=== PATIENT | male | born 1980 | race Caucasian/White ===

== ENCOUNTER → 2022-11-11 12:58 | Outpatient (BNVA) | payer MEDICARE, SELFPAY | PROVIDERS: Visit Provider Family Medicine | DX: Z00.00 Encounter for general adult medical examination without abnormal findings (principal); M96.1 Postlaminectomy syndrome, not elsewhere classified; Z96.89 Presence of other specified functional implants; Z85.830 Personal history of malignant neoplasm of bone; G47.33 Obstructive sleep apnea (adult) (pediatric) | CPT/HCPCS: 80053; 80061; 83036; 83721; 85025 ==

== ENCOUNTER → 2023-04-30 08:21 | Outpatient (BNVA) | payer MEDICARE, SELFPAY | PROVIDERS: PCP Family Medicine; Visit Provider Family Medicine | DX: D75.1 Secondary polycythemia (principal); E78.5 Hyperlipidemia, unspecified; Z85.830 Personal history of malignant neoplasm of bone; M96.1 Postlaminectomy syndrome, not elsewhere classified; F17.200 Nicotine dependence, unspecified, uncomplicated | CPT/HCPCS: 80061; 85025 ==

== ENCOUNTER 2023-05-14 15:17 | Outpatient (CLI) | payer MEDICARE, MEDICAID, SELFPAY ==
--- NOTE | 2023-05-14 15:30 | CT_ITS ---
WS: [id number] CT chest w con* [id number] HISTORY: History of synovial sarcoma of the RIGHT thigh. TECHNIQUE: Axial imaging performed through the thorax. Coronal and sagittal reformats are submitted. All CT scans at [facility] use at least one of these dose optimization techniques: automated exposure control; mA and/or kV adjustment per patient size (includes targeted exams where dose is mat ched to clinical indication); or iterative reconstruction. CONTRAST: Omnipaque 350; 100 mL IV. DLP: 498.38 mGy.cm COMPARISON: None available. Lungs and central airway: Mildly hyperexpanded lungs. Mild changes of centrilobular emphysema. No mas s or pulmonary nodule. No groundglass attenuation. Pleura: Normal. No pleural effusion. Heart and pericardium: Normal size heart with no pericardial effusion. Mediastinum and yasmany: Small subcentimeter mediastinal and hilar lymph nodes. Largest lymph node is 8 mm in the RIGHT suprahilar location. Vessels: Normal size aortic and pulmonary artery. No coronary artery calcifications. Chest wall and lower neck: No soft tissue masses. Upper abdomen: Normal. Osseous structures: No destructive bone lesions. Dorsal column stimulator electrodes are noted over t he mid thoracic region. IMPRESSION: 1. No pulmonary mass or nodule. 2. No mediastinal or hilar lymphadenopathy. 3. Mild chronic emphysema.
[2023-05-14] MEDS: iohexol 350 mg/mL 500 mL Btl (per mL) IV (16:07)
== END 2023-05-14 15:18 | disposition home or self-care (01) ==
LOC: RAD 15:18
PROVIDERS: PCP Family Medicine; Visit Provider Family Medicine
DX: Z85.830 Personal history of malignant neoplasm of bone (principal); J43.2 Centrilobular emphysema
CPT/HCPCS: 71260; Q9967

== ENCOUNTER 2023-09-29 06:14 | Emergency (ER) | payer MEDICARE, MEDICAID, SELFPAY ==
[2023-09-29 06:16] VITALS: BP 143/105; PULSE 86; RESP 18; TEMP 36.7; O2SAT 97; BMI 32.5
--- NOTE | 2023-09-29 06:19 | ECG_ITS ---
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 Measurements Intervals [place] Rate: 84 P: 73 FL: 148 QRS: 60 QRSD: 139 T: 70 QT: 361 QTc: 427 Interpretive Statements SINUS RHYTHM RIGHT BUNDLE BRANCH BLOCK [120+ ms QRS DURATION, UPRIGHT V1, 40+ ms S IN I/aVL/V4/V5/V6] No previous ECG available for comparison Electronically Signed On 09-29-2023 12:39:32 CDT by Tristin Vallejo M.D. [email or web address]en[facility] hospitalKeoya Business Enterprise Services Group[facility].Zilyo/store/Ov/[id number]
[2023-09-29 06:31] VITALS: BP 136/100; PULSE 88; RESP 16; O2SAT 98
--- NOTE | 2023-09-29 06:38 | XR_ITS ---
WS: [id number] XR chest 1V portable [id number] REASON FOR EXAM: cp FINDINGS: Heart and mediastinum are within normal limits. Calcified granulomatous disease in both hemithoraces. No acute pulmonary parenchymal or pleural abnormality. Bony thorax is intact with mild changes of degenerative spondylosis in the mid and lower thoracic spi ne. Dorsal column stimulator in place in the midline at T8 level. XR/XR chest 1V portable [id number] IMPRESSION: No acute chest abnormality.
--- NOTE | 2023-09-29 06:39 | ED_ITS ---
HPI - Chest Pain 2 General: Chief Complaint: Chest Pain Stated Complaint: chest pain Time Seen by Provider: 09/29/23 06:27 Source: patient Mode of arrival: ambulatory Limitations: no limitations History of Present Illness: This patient presented to the emergency department this morning because of concerns about having chest pain for the last 2 days. He states is predominantly in his left chest and not associated with nausea vomiting diaphoresis shortness of breath or radiation. He states he has no history of gastroesophageal reflux or cardiac disease that he is aware. He states that when he moves in certain directions and sometimes take a deep breath it seems to change the level or intensity of his pain. He describes it as a dull ache. Not ripping or tearing. He does relate that he has been cutting wood for the last couple days with a chainsaw which is not activity he usually does. He states he generally is sleeping okay although certain movements woke him from sleep last night. He denies any other constitutional complaints at this time. He recently quit smoking has not had any fever cough etc. He has no family history of premature coronary artery disease. MD complaint: chest pain Pain location: left chest Pain radiation: none Quality: heaviness Exacerbating factors: movement Associated symptoms: Deny abdominal pain, dyspnea, fever(s), nausea, palpitations, syncope or vomiting Treatment prior to arrival: none Risk Factors: Coronary artery disease risk factors: smoking history Review of Systems 2 Const: Denies: fever(s) or chills Eyes: Denies: change in vision ENMT: Denies: throat pain, odynophagia, nasal congestion or nasal obstruction Card: Denies: palpitations, syncope, pre-syncope, dyspnea on exertion or orthopnea Resp: Denies: dyspnea, wheezing or stridor GI: Denies: abdominal pain, nausea or vomiting : Denies: flank pain, difficulty urinating or dysuria Musc: Denies: neck pain, back pain, extremity pain or extremity swelling Skin/Breast: Denies: rash or pruritus Neuro: Denies: headache(s), numbness in extremities or weakness in extremities PFSH ED 2 PFSH: Medical History Smoker BERYL on CPAP Spinal cord stimulator status Failed back syndrome of lumbar spine History of osteosarcoma Surgical History History of surgery on lower extremity resection of osteosarcoma of right femur Status post insertion of spinal cord stimulator History of microdiscectomy L5-S1 Family History Grandfather CAD (coronary artery disease) Diabetes Hypertension Hyperlipidemia Denies family history of Clotting disorder Chronic kidney disease (CKD) Stroke Social History Smoking and tobacco/nicotine status: former use of tobacco/nicotine Quit status (tobacco/nicotine): has quit using Year quit tobacco: 2013 Alcohol intake: never Substance/Drug Use: never Household members: spouse and children Marital status: Number of children: 3 Current occupational status: disabled Previous occupational history: [employer]/Pro[employer]ant: [employer] ines needs: No Agree to transfusion: Yes Physical Exam 2 Narrative: EXAM NARRATIVE: Make good eye contact is in good spirits and cooperative. Appears to be in no acute distress. Const: COMMON NORMALS: no acute distress, patient oriented x3, healthy appearing and alert GENERAL APPEARANCE: cooperative NUTRITIONAL APPEARANCE: overweight HENMT: COMMON NORMALS: normocephalic, Normal nasal mucous membranes and turbinates present, moist oral mucous membranes and oropharynx normal HEAD & SCALP: normocephalic FACE & SINUS: normal facial exam NOSE: Normal nasal mucous membranes and turbinates present Eye: COMMON NORMALS: Equal, round and reactive pupils present, EOMs intact bilaterally and conjunctivae normal CONJUNCTIVA: Yes conjunctivae normal P UPIL: Yes Equal, round and reactive pupils present Neck/C-Spine: COMMON NORMALS: full ROM, no lymphadenopathy and no JVD Chest: COMMONS NORMALS: normal inspection of the chest OTHER: Twisting and turning of the trunk to the left and right reproduces symptoms as well as movement of his trunk against resistance Resp: COMMON NORMALS: normal respiratory effort, No use of accessory muscles and clear to auscultation bilaterally AUSCULTATION: clear to auscultation bilaterally Cardio: COMMON NORMALS: no JVD, regular rate, regular rhythm, No murmurs present (Cardio) and Peripheral pulses 2+ throughout RATE: regular rate R HYTHM: regular rhythm PERIPHERAL PULSES: Peripheral pulses 2+ throughout GI: COMMON NORMALS: Normal to inspection, nondistended, normoactive bowel sounds present and Soft to palpation PALPATION: Yes Soft to palpation : COMMON NORMALS: Yes no CVA tenderness BLADDER/KIDNEY EXAM: Yes no CVA tenderness Back/Pelvis: COMMON NORMALS: no CVA tenderness, thoracic and lumbar spine normal to inspection, no thoracic nor lumbar tenderness, thoraco-lumbar ROM normal and straight leg raise negative bilaterally Extremity: COMMON NORMALS: normal to inspection, full ROM, capillary refill normal, no calf tenderness and no pedal edema Neuro: COMMON NORMALS: patient oriented x3, moves all extremities and no focal motor deficits SENSORIUM/ORIENTATION: Yes alert CRANIAL NERVES: Yes CN normal except as noted Psych: COMMON NORMALS: mental status grossly normal Skin: COMMON NORMALS: turgor normal and no jaundice NARRATIVE SKIN EXAM: Multiple excoriated papules on both lower extremities no ascending lymphangitis or lymphadenopathy. GENERAL SKIN EXAM: turgor normal Course 2 Reevaluation(s): Reevaluation #1: Patient remains unchanged no new or focal findings on repeat examination. Initial troponin reassuring. W we are waiting on second troponin to provide more negative predictive value to his evaluation. Time: 10:00 Vital Signs: Vital signs: Vital Signs Temperature 98.0 F 09/29/23 06:16 Pulse Rate 78 09/29/23 07:38 Respiratory Rate 16 09/29/23 06:31 Blood Pressure 127/92 09/29/23 09:00 Pulse Oximetry 92 09/29/23 07:38 Oxygen Delivery Me thod Room Air 09/29/23 07:38 MDM - Chest Pain Medical Decision Making This patient presented to the emergency department because of concerns about chest pain has been present over the last 2 days particularly worse when he is lying on his side of bed and other movements. He states that he has been involved in using a chainsaw the last couple days with his activity he does not normally participate in. He does have a history of heart cholesterol and was previously a smoker up until recently. No family history of premature cardiovascular disease. Medical exam suggest chest wall discomfort but certainly given his age and other risk factors differential would include ACS etc. Chest x-ray as well as EKGs and serial biomarkers were obtained to help reduce likelihood of ACS etc. Serial biomarkers and EKGs were unremarkable for any evidence of suggest acute change at this time. Low risk of other potential etiologies such as rib fracture pneumothorax pneumonia etc. No risk factors currently for thromboembolic disease. He is not hypoxic tachycardic or otherwise at risk. Certainly stable at this time to be discharged with outpatient follow-up and return precautions. Lab Data I reviewed the patient's lab results. 09/29/23 06:54 09/29/23 06:54 Radiology Impressions Chest X-Ray 09/29/23 06:38 IMPRESSION: No acute chest abnormality. Laboratory Results WBC 10.35 10^3/uL (3.29-11.43) 09/29/23 06:54 RBC 5.31 10^6/uL (3.85-5.65) 09/29/23 06:54 Hgb 16.50 g/dL (11.27-16.99) 09/29/23 06:54 Hct 48.9 % (37-53) 09/29/23 06:54 MCV 92.1 fl (82-101) 09/29/23 06:54 MCH 31.1 pg (27-33) 09/29/23 06:54 MCHC 33.7 g/dL (30-55) 09/29/23 06:54 RDW 13.3 % (12.1-15.1) 09/29/23 06:54 Plt Count 268 10^3/cmm (157-399) 09/29/23 06:54 MPV 9.3 fL (7.4-10.4) 09/29/23 06:54 Neut % (Auto) 63.1 % 09/29/23 06:54 Lymph % (Auto) 22.3 % 09/29/23 06:54 Hall % (Auto) 9.9 % 09/29/23 06:54 Eos % (Auto) 3.6 % 09/29/23 06:54 Baso % (Auto) 0.8 % 09/29/23 06:54 Neut # (Auto) 6.54 10^3/uL (1.8-7.7) 09/29/23 06:54 Lymph # (Auto) 2.3 10^3/uL (0.8-4.8) 09/29/23 06:54 Hall # (Auto) 1.0 10^3/uL (0.2-0.9) H 09/29/23 06:54 Eos # (Auto) 0.4 10^3/uL (0.0-0.8) 09/29/23 06:54 Baso # (Auto) 0.1 10^3/uL (0.0-0.1) 09/29/23 06:54 Nucleated RBC % (auto) 0 % 09/29/23 06:54 Nucleated RBCs # 0.0 /100WBC 09/29/23 06:54 Sodium 137 mmol/L (136-145) 09/29/23 06:54 Potassium 4.3 mmol/L (3.5-5.1) 09/29/23 06:54 Chloride 103 mmol/L (98-107) 09/29/23 06:54 Carbon Dioxide 21 mmol/L (22-29) L 09/29/23 06:54 Anion Gap 17.3 (5-19) 09/29/23 06:54 BUN 14 mg/dL (6-20) 09/29/23 06:54 Creatinine 0.9 mg/dL (0.7-1.2) 09/29/23 06:54 GFR Calculation 92.5 mL/min (90-130) 09/29/23 06:54 Glucose 100 mg/dL (65-115) 09/29/23 06:54 Calculated Osmolality 285 mOsm/kg (285-295) 09/29/23 06:54 Calcium 9.3 mg/dL (8.5-10.5) 09/29/23 06:54 Total Bilirubin 0.3 mg/dL (0.15-1.2) 09/29/23 06:54 AST 19 U/L (0-40) 09/29/23 06:54 ALT 22 U/L (0-41) 09/29/23 06:54 Alkaline Phosphatase 92 U/L (40-130) 09/29/23 06:54 Troponin T Baseline 8 ng/L (0-15) 09/29/23 06:54 Troponin T 120 Minute 6.61 ng/L (0-15) 09/29/23 09:44 Delta Troponin T -1.39 ABS# (0-10) L 09/29/23 09:44 Total Protein 7.0 g/dL (6.6-8.7) 09/29/23 06:54 Albumin 4.1 g/dL (3.5-5.2) 09/29/23 06:54 Globulin 2.9 g/dL (1.3-4.6) 09/29/23 06:54 All radiology interpretation(s) finalized by discharge EKG Data EKG 1: I personally reviewed and interpreted this EKG as follows: Interpretation: Contemporaneous review resting EKG reveals a ventricular rate of 84 bpm. Normal TX interval, QRS duration, corrected QT interval. Normal axis. Does have a right bundle branch pattern. No acute ST-T wave changes noted. EKG 2: I personally reviewed and interpreted this EKG as follows: Interpretation: Second electrocardiogram obtained this visit reveals ventricular rate of 80 bpm. Normal TX interval, QRS duration, corrected QT interval. Normal axis. Still has the right bundle branch block pattern present on earlier EKG no acute ST-T wave changes noted. No change from previous EKG. Discharge Plan Discharge Patient Disposition: Home Clinical Impression: Chest pain Condition: Stable Prescriptions: No Action pregabalin 150 mg capsule 150 mg PO DAILY Qty: 30 2RF sildenafil [Viagra] 25 mg tablet 25 mg PO DAILY PRN (Reason: sexual activity) Qty: 14 0RF Rx Instructions: administer 30 minutes to 4 hours before activity Discharge Orders: Discharge ED (Routine); Ordered 09/29/23 Ordered By: Bennie Real Referrals: Kelly Olivares MD [Primary Care Provider] - Discharge Diet: Usual diet Discharge Activity: Increase activity as tolerated Patient Instructions: Opioid Safety, Pain Management Activity Restrictions/Additional Instructions: As we discussed while you are in the emergency department there is no evidence today that suggest that you had a heart attack or other serious cardiovascular issue causing your pain. It would appear this is most likely due to a strain of the chest wall due to your recent physical activities. However if your symptoms do not improve as we expect over the next few days you develop other associated symptoms such as chest pain with activity difficulty breathing with activity or any other concerns you are welcome to return to the emergency department. We also recommend you follow-up with your primary care doctor to have her cholesterol rechecked to determine if you need medications or not. Coding Level of Care Code ED Automation Technician for Antoinette Perea
[2023-09-29 07:00] VITALS: BP 131/92; PULSE 81; O2SAT 97
[2023-09-29 07:20] LABS: Basophils # 0.1 10^3/uL (0.0-0.1); Basophils % 0.8 %; Eosinophils # 0.4 10^3/uL (0.0-0.8); Eosinophils % 3.6 %; Hematocrit 48.9 % (37-53); Lymphocytes # 2.3 10^3/uL (0.8-4.8); Lymphocytes % 22.3 %; Mean Corpuscular HGB Conc 33.7 g/dL (30-55); Mean Corpuscular Hemoglobin 31.1 pg (27-33); Mean Corpuscular Volume 92.1 fl (82-101); Mean Platelet Volume 9.3 fL (7.4-10.4); Monocytes % 9.9 %; Neutrophils # 6.54 10^3/uL (1.8-7.7); Neutrophils % 63.1 %; Nucleated Red Blood Cells % 0 %; Platelet Count 268 10^3/cmm (157-399); Red Blood Count 5.31 10^6/uL (3.85-5.65); Red Cell Distribution Width 13.3 % (12.1-15.1); White Blood Count 10.35 10^3/uL (3.29-11.43)
[2023-09-29 07:38] VITALS: BP 134/91; PULSE 78; O2SAT 92
[2023-09-29 07:42] LABS: Alanine Aminotransferase 22 U/L (0-41); Albumin Level 4.1 g/dL (3.5-5.2); Alkaline Phosphatase 92 U/L (40-130); Anion Gap 17.3 (5-19); Aspartate Amino Transferase 19 U/L (0-40); Blood Urea Nitrogen 14 mg/dL (6-20); Calcium 9.3 mg/dL (8.5-10.5); Carbon Dioxide 21 mmol/L (22-29); Chloride 103 mmol/L (98-107); Creatinine Clr Calc Pharmacy 124.5205; Globulin 2.9 g/dL (1.3-4.6); Glomerular Filtration Rate 92.5 mL/min (90-130); Glucose 100 mg/dL (65-115); Osmolality Calculated 285 mOsm/kg (285-295); Potassium 4.3 mmol/L (3.5-5.1); Sodium 137 mmol/L (136-145); Total Bilirubin 0.3 mg/dL (0.15-1.2)
[2023-09-29 07:43] LABS: Troponin(5th) Baseline 8 ng/L (0-15)
--- NOTE | 2023-09-29 08:35 | ECG_ITS ---
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 Measurements Intervals [place] Rate: 80 P: 76 VA: 154 QRS: 74 QRSD: 130 T: 64 QT: 378 QTc: 437 Interpretive Statements SINUS RHYTHM RIGHT BUNDLE BRANCH BLOCK [120+ ms QRS DURATION, UPRIGHT V1, 40+ ms S IN I/aVL/V4/V5/V6] No previous ECG available for comparison Electronically Signed On 09-29-2023 12:40:30 CDT by Tristin Vallejo M.D. [email or web address] centralTinubu [id number]
[2023-09-29 09:00] VITALS: BP 127/92
[2023-09-29 10:19] LABS: Troponin 5 2HR 6.61 ng/L (0-15)
[2023-09-29 10:21] LABS: Troponin 5 2HR Delta -1.39 ABS# (0-10)
== END 2023-09-29 10:30 | disposition home or self-care (01) ==
PROVIDERS: Emergency Provider Emergency Medicine; PCP Family Medicine
DX: R07.9 Chest pain, unspecified (principal); I45.10 Unspecified right bundle-branch block; Z87.891 Personal history of nicotine dependence
CPT/HCPCS: 36415; 71045; 80053; 84484; 85025; 93005; 99285

== ENCOUNTER → 2024-10-10 14:12 | Outpatient (BNVA) | payer MEDICARE, MEDICAID, SELFPAY | PROVIDERS: PCP Family Medicine; Visit Provider Family Medicine | DX: E78.5 Hyperlipidemia, unspecified (principal); D75.1 Secondary polycythemia | CPT/HCPCS: 80053; 80061; 83721; 85025 ==